=== PATIENT | female | born 1995 | race Caucasian/White ===

== ENCOUNTER → 2017-02-09 | Outpatient (REF) | payer BC | LOC: M LAB REF 13:41 | PROVIDERS: ATTEND Physician Assistant | DX: J06.9 Acute upper respiratory infection, unspecified (principal) ==

== ENCOUNTER → 2019-06-01 | Outpatient (CLI) | payer BC ==
--- NOTE | 2019-06-01 11:28 | REP ---
Hepatobiliary scan and gallbladder ejection fraction: History: Right upper quadrant abdominal pain. Technique: 6.5 mCi of technetium-99m mebrofenin was injected and sequential anterior images are acquired. 65 minutes after the mebrofenin injection, the patient consumed 8 ounces Ensure and an additional 60 minutes of imaging was acquired. Regions of interest are plotted around the gallbladder. During the gallbladder ejection phase of imaging, bowel loops are seen to superimposing themselves on the gallbladder late in the study. Accordingly, the gallbladder ejection fraction was calculated on a comparison between the pre ensure anterior image and post Ensure right lateral image. Findings: The initial hepatocellular parenchymal uptake phase is normal and homogeneous. Intra- and extra-hepatic bile ducts are labeled by the 15 -minute image. The gallbladder is first labeled on the 15 -minute image. There is normal washout from the liver parenchyma into the gallbladder and small intestine on subsequent images. The gallbladder ejection fraction is 14.7 %. Values greater than 35 % are considered normal with this technique. However, review of the initial 5-minute images taken before the Ensure was ingested demonstrate that the gallbladder emptied spontaneously before the meal. This is felt to this indicate normal gallbladder contractility and thus I do not feel the 14.7% ejection fraction calculation after the Ensure medial indicates an abnormality Impression: Normal hepatobiliary scan. The gallbladder ejection fraction calculation was 14.7%, however the gallbladder was observed to contract during the initial 1 hour of imaging before the Ensure was ingested by the patient. This is felt to mitigate against abnormal or deficient gallbladder contractility. Electronically Signed by Salvador Leung MD 06/01/2019 11:19 A
== END ==
LOC: M RAD 08:01
PROVIDERS: ATTEND Internal Medicine
DX: R10.11 Right upper quadrant pain (principal)
CPT/HCPCS: 78227; A9537; J2805

== ENCOUNTER → 2022-02-10 | Outpatient (REF) | payer BC, OTHER | LOC: M SFHCDERM 14:00 | PROVIDERS: ATTEND Nurse Practitioner Family | DX: D22.9 Melanocytic nevi, unspecified (principal) ==

== ENCOUNTER → 2022-08-15 | Outpatient (REF) | payer BC, OTHER | LOC: M SFHCDERM 17:13 | PROVIDERS: ATTEND Nurse Practitioner Family | DX: D48.9 Neoplasm of uncertain behavior, unspecified (principal) ==

== ENCOUNTER 2023-04-20 08:48 | Day surgery (SDC) | payer OTHER ==
[~2023-04-20] VITALS: Ht 158.8 cm; Wt 61.5 kg
[~2023-04-20 08:48] MED LIST: DIVA250T67 PO; DOXY100C3 PO; GNPTAB36 PO; NS 1,000 ML IV ONE; OMEP-173 PO; SERT50TA29 PO; TOPI100T9 PO
[2023-04-20] MEDS ORDERED: LIDOCAINE 2% 100MG/5ML SDV (FOR ANES.) As Ordered ONE (10:44)
[2023-04-20] MEDS ORDERED: propofoL 200 MG/20 ML VIAL As Ordered ONE ×2 (10:44→11:21)
[2023-04-20] MEDS ORDERED: ePHEDrine SULFATE 25 MG/5 ML(5MG/ML) SYRINGE As Ordered ONE (11:03)
[2023-04-20 11:05] VITALS: TEMP 97.8
[2023-04-20 11:45] VITALS: BP 119/56; O2SAT 98
== END 2023-04-20 12:05 | disposition home or self-care (01) ==
LOC: M OPP 08:48
PROVIDERS: ATTEND Internal Medicine Gastroenterology
DX: K64.4 Residual hemorrhoidal skin tags (principal); K64.8 Other hemorrhoids; K52.9 Noninfective gastroenteritis and colitis, unspecified; K29.70 Gastritis, unspecified, without bleeding; K92.0 Hematemesis; F17.290 Nicotine dependence, other tobacco product, uncomplicated; Z79.2 Long term (current) use of antibiotics; Z79.83 Long term (current) use of bisphosphonates; Z79.899 Other long term (current) drug therapy; Z88.2 Allergy status to sulfonamides; Z91.041 Radiographic dye allergy status; Z91.048 Other nonmedicinal substance allergy status

== ENCOUNTER → 2024-08-24 | Outpatient (CLI) | payer OTHER ==
[~2024-08-24] MED LIST changes: -NS 1,000 ML IV ONE; +PROHANCE 279.3MG/ML 15ML VIAL As Ordered ONE
== END ==
LOC: M RAD 07:53
PROVIDERS: ATTEND Psychiatry & Neurology Neurology
DX: G37.9 Demyelinating disease of central nervous system, unspecified (principal); R20.2 Paresthesia of skin; R26.2 Difficulty in walking, not elsewhere classified
CPT/HCPCS: 70553; 72156; 72157; A9576

== ENCOUNTER → 2025-03-27 | Outpatient (CLI) | payer OTHER ==
[~2025-03-27] MED LIST changes: -PROHANCE 279.3MG/ML 15ML VIAL As Ordered ONE; +TOPI-257 PO; -TOPI100T9 PO
== END ==
LOC: M CARPUL 08:01
PROVIDERS: ATTEND Physician Assistant
DX: R94.31 Abnormal electrocardiogram [ECG] [EKG] (principal)